=== PATIENT | female | born 2000 | race Two or more races ===

== ENCOUNTER 2019-08-29 17:07 | Emergency (ER) | payer SELFPAY ==
--- NOTE | 2019-08-29 18:00 | EDM.PDOC ---
ED HPI GENERAL MEDICAL PROBLEM - General Chief Complaint: Upper Extremity Injury/Pain Stated Complaint: LT ARM AND SHOULDER INJURY Time Seen by Provider: 08/29/19 17:18 Source of Information: Reports: Patient History Limitations: Reports: No Limitations - History of Present Illness INITIAL COMMENTS - FREE TEXT/NARRATIVE: The patient presents with left arm, shoulder and neck pain. She slipped and fell on some ice. She grabbed herself with that arm. She did not hit her head but she did hurt her neck. Her left shoulder, clavicle, elbow and wrist all hurt. She is right handed. She has no chest or abdominal pain. Onset: Sudden Duration: Day(s): (Yesterday) Location: Reports: Neck, Upper Extremity, Left (shoulder, elbow and wrist pain) Severity: Severe Improves with: Reports: Immobilization Worsens with: Reports: Movement Context: Reports: Trauma (fall) Associated Symptoms: Reports: No Other Symptoms Left Clavicle Pain Score (Numeric/FACES): 9 - Related Data Allergies Allergy/AdvReac Type Severity Reaction Status Date / Time amoxicillin Allergy Hives Verified 08/29/19 17:21 latex Allergy Hives Verified 08/29/19 17:21 Home Meds: Home Meds Hydrocodone/Acetaminophen [Hydrocodon-Acetaminophen 5-325] 1 - 2 each PO Q6HR PRN #15 tablet 08/29/19 [Rx] Past Medical History - Past Health History Medical/Surgical History: Denies Medical/Surgical History Social & Family History - Tobacco Use Smoking Status *Q: Current Every Day Smoker Years of Tobacco use: 3 Packs/Tins Daily: 0.5 - Caffeine Use Caffeine Use: Reports: Energy Drinks, Tea - Recreational Drug Use Recreational Drug Use: No Review of Systems - Review of Systems Review Of Systems: See Below Constitutional: Reports: No Symptoms Eyes: Reports: No Symptoms Ears: Reports: No Symptoms Nose: Reports: No Symptoms Mouth/Throat: Reports: No Symptoms Respiratory: Reports: No Symptoms Cardiovascular: Reports: No Symptoms GI/Abdominal: Reports: No Symptoms Genitourinary: Reports: No Symptoms Musculoskeletal: Reports: Neck Pain, Other (left shoulder, elbow and wrist pain) ED EXAM, GENERAL - Physical Exam Exam: See Below Exam Limited By: No Limitations General Appearance: Alert, No Apparent Distress Ears: Normal External Exam Nose: Normal Inspection Head: Atraumatic, Normocephalic Neck: Tender Lateral (left) Respiratory/Chest: No Respiratory Distress, Lungs Clear, Normal Breath Sounds Cardiovascular: Regular Rate, Rhythm, No Edema, No Murmur GI/Abdominal: Soft, Non-Tender, No Organomegaly, No Mass Back Exam: Normal Inspection Extremities: Other (Pain upon palpation to the left shoulder, left elbow and left wrist. Good sensation and pulses distally.) Course - Vital Signs Last Recorded V/S: Last Vital Signs Temp 98.5 F 08/29/19 17:25 Pulse 79 08/29/19 17:25 Resp 20 08/29/19 17:25 BP 113/78 08/29/19 17:25 Pulse Ox 95 08/29/19 17:25 - Orders/Labs/Meds Orders: Active Orders 24 hr Category Date Time Status Cervical Spine 2V or 3V [CR] Stat Exams 08/29/19 17:24 Taken Forearm 2V Lt [CR] Stat Exams 08/29/19 17:26 Taken Shoulder Comp Lt [CR] Stat Exams 08/29/19 17:24 Taken - Re-Assessments/Exams Free Text/Narrative Re-Assessment/Exam: 08/29/19 17:59 I ordered an x-ray of her shoulder, neck and forearm. 08/29/19 18:38 Her x-rays look good. Departure - Departure Time of Disposition: 18:40 Disposition: Home, Self-Care 01 Condition: Good Clinical Impression: Fall Qualifiers: Encounter type: initial encounter Qualified Code(s): W19.XXXA - Unspecified fall, initial encounter Cervical strain, acute Qualifiers: Encounter type: initial encounter Qualified Code(s): S16.1XXA - Strain of muscle, fascia and tendon at neck level, initial encounter Sprain of shoulder Qualifiers: Encounter type: initial encounter Shoulder sprain type: unspecified sprain Laterality: left Qualified Code(s): S43.402A - Unspecified sprain of left shoulder joint, initial encounter Sprain of elbow, left Qualifiers: Encounter type: initial encounter Qualified Code(s): S53.402A - Unspecified sprain of left elbow, initial encounter Sprain of wrist, left Qualifiers: Encounter type: initial encounter Qualified Code(s): S63.502A - Unspecified sprain of left wrist, initial encounter - Discharge Information *PRESCRIPTION DRUG MONITORING PROGRAM REVIEWED*: No *COPY OF PRESCRIPTION DRUG MONITORING REPORT IN PATIENT AARON: No Prescriptions: Hydrocodone/Acetaminophen [Hydrocodon-Acetaminophen 5-325] 1 - 2 each PO Q6HR PRN #15 tablet PRN Reason: Pain Referrals: PCP,None [Primary Care Provider] - Shirley Mei, IS CONSULTANT [Nurse Practitioner] - 1 Week Forms: ED Department Discharge Additional Instructions: Ice your arm and neck for 15 minutes 3 times per day for 2 days. Take tylenol or motrin for pain. If that does not work, try the hydrocodone. Please return if you are worse. Sepsis Event Note - Evaluation Sepsis Screening Result: No Definite Risk - Focused Exam Vital Signs: Vital Signs Temp Pulse Resp BP Pulse Ox 08/29/19 17:25 98.5 F 79 20 113/78 95 Date Exam was Performed: 08/29/19 Time Exam was Performed: 18:38 - My Orders Last 24 Hours: My Active Orders 08/29/19 17:24 Cervical Spine 2V or 3V [CR] Stat Shoulder Comp Lt [CR] Stat 08/29/19 17:26 Forearm 2V Lt [CR] Stat - Assessment/Plan Last 24 Hours: My Active Orders 08/29/19 17:24 Cervical Spine 2V or 3V [CR] Stat Shoulder Comp Lt [CR] Stat 08/29/19 17:26 Forearm 2V Lt [CR] Stat
--- NOTE | 2019-09-01 07:47 | CR ---
Left forearm: 2 views of the left forearm were obtained. Comparison: No prior left forearm study. No fracture or other bony abnormality is seen. Impression: 1. No abnormality is identified on 2 view left forearm study. Diagnostic code #1 This report was dictated in MDT
--- NOTE | 2019-09-01 07:47 | CR ---
Cervical spine: AP, lateral and odontoid views of the cervical spine were obtained. Comparison: No prior cervical spine imaging is available. Vertebral body heights and disc spaces are maintained. Prevertebral soft tissues are normal. Slight scoliosis is noted within the spine. No subluxation or fracture is appreciated. Impression: 1. Mild scoliosis. 2. Three-view cervical spine study is otherwise unremarkable. Diagnostic code #2 This report was dictated in MDT
--- NOTE | 2019-09-01 07:47 | CR ---
Left shoulder: 3 views of the left shoulder were obtained. Comparison: No prior left shoulder study. Glenohumeral joint and acromioclavicular joint appears unremarkable. Mild scoliosis is noted within the spine. No fracture, dislocation or other bony abnormality is identified. Impression: 1. Mild scoliosis. 2. Left shoulder study is otherwise unremarkable. Diagnostic code #2 This report was dictated in MDT
== END 2019-08-29 19:00 | disposition home or self-care (01) ==
LOC: JD.ED 17:07
DX: S16.1XXA Strain of muscle, fascia and tendon at neck level, initial encounter (principal); S53.402A Unspecified sprain of left elbow, initial encounter; S63.502A Unspecified sprain of left wrist, initial encounter; F17.210 Nicotine dependence, cigarettes, uncomplicated; Z88.1 Allergy status to other antibiotic agents; Z91.040 Latex allergy status; W19.XXXA Unspecified fall, initial encounter
CPT/HCPCS: 72040; 72040-26; 73030-26-LT; 73030-LT; 73090-26-LT; 73090-LT; 99283; 99283-25

== ENCOUNTER 2020-02-04 13:44 | Emergency (ER) | payer SELFPAY ==
--- NOTE | 2020-02-04 15:32 | US ---
Pelvic ultrasound: Multiple real-time images were obtained transvaginally. Comparison: No previous pelvic imaging is available. Findings: Small cystic structure is noted within the lower uterine segment. No other myometrial abnormality is seen. Uterus is anteverted. Endometrial thickness is 4 mm. Follicles are seen within both ovaries. No larger cyst or solid abnormality is seen within either ovary. Measurements: Uterus: Length 5.8 cm, AP height 2.3 cm, transverse width 4.0 cm Right ovary: 3.8 x 3.0 x 3.4 cm Left ovary: 4.1 x 1.5 x 4.6 cm Impression: 1. Small cyst within the lower uterine segment. This is believed to be incidental. 2. No additional abnormality is appreciated on pelvic ultrasound study. Diagnostic code #2 This report was dictated in MDT
--- NOTE | 2020-02-04 16:28 | EDM.PDOC ---
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 This has been going on for about 3 weeks. She says her cycle came early and she continues to bleed. She was soaking a pad every 1/2 hour. She has a history of polycystic ovarian syndrome. She has no fever, chills, cough, congestion, runny nose, chest pain or shortness of breath. Onset: Gradual Duration: Week(s): Location: Reports: Pelvis Quality: Reports: Sharp Severity: Moderate Improves with: Reports: None Worsens with: Reports: None Associated Symptoms: Reports: No Other Symptoms Lower Abdomen Pain Score (Numeric/FACES): 9 - Related Data Allergies Allergy/AdvReac Type Severity Reaction Status Date / Time amoxicillin Allergy Hives Verified 02/04/20 14:00 latex Allergy Hives Verified 02/04/20 14:00 Home Meds: Home Meds medroxyPROGESTERone [Provera] 10 mg PO DAILY #10 tab 02/04/20 [Rx] Past Medical History - Past Health History Medical/Surgical History: Denies Medical/Surgical History 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 Other JEWELLERY DESIGNER History: PCOS - Past Surgical History HEENT Surgical History: Reports: Oral Surgery Social & Family History - Tobacco Use Smoking Status *Q: Current Every Day Smoker Years of Tobacco use: 10 Packs/Tins Daily: 0.5 - Caffeine Use Caffeine Use: Reports: Energy Drinks - Recreational Drug Use Recreational Drug Use: No ED ROS GENERAL - Review of Systems Review Of Systems: See Below Constitutional: Reports: No Symptoms HEENT: Reports: No Symptoms Respiratory: Reports: No Symptoms Cardiovascular: Reports: No Symptoms Endocrine: Reports: No Symptoms GI/Abdominal: Reports: No Symptoms : Reports: Pain, Other (vaginal bleeding) ED EXAM, GI/ABD - Physical Exam Exam: See Below Exam Limited By: No Limitations General Appearance: Alert, No Apparent Distress Ears: Normal External Exam Nose: Normal Inspection Head: Atraumatic, Normocephalic Neck: Normal Inspection Respiratory/Chest: No Respiratory Distress, Lungs Clear, Normal Breath Sounds Cardiovascular: Regular Rate, Rhythm, No Edema, No Murmur GI/Abdominal Exam: Soft, No Organomegaly, No Mass, Tender (Mild tenderness to the left lower abdomen) Course - Vital Signs Last Recorded V/S: Last Vital Signs Temp 97.1 F 02/04/20 13:57 Pulse 78 02/04/20 13:57 Resp 18 02/04/20 13:57 BP 115/70 02/04/20 13:57 Pulse Ox 100 02/04/20 13:57 - Orders/Labs/Meds Orders: Active Orders 24 hr Category Date Time Status Pelvic Exam, Set Up [RC] ASDIRECTED Care 02/04/20 14:29 Active PATIENT RETYPE [BBK] Routine Lab 02/04/20 15:52 Ordered Labs: Laboratory Tests 02/04/20 02/04/20 02/04/20 Range/Units 15:13 15:13 15:13 WBC 8.97 (3.98-10.04) K/mm3 RBC 5.62 H (3.98-5.22) M/mm3 Hgb 14.9 (11.2-15.7) gm/dl Hct 44.1 (34.1-44.9) % MCV 78.5 L (79.4-94.8) fl MCH 26.5 (25.6-32.2) pg MCHC 33.8 (32.2-35.5) g/dl RDW Std Deviation 36.1 L (36.4-46.3) fL Plt Count 360 (182-369) K/mm3 MPV 9.3 L (9.4-12.3) fl Neut % (Auto) 64.3 (34.0-71.1) % Lymph % (Auto) 24.7 (19.3-51.7) % Fallon % (Auto) 7.6 (4.7-12.5) % Eos % (Auto) 3.1 (0.7-5.8) Baso % (Auto) 0.2 (0.1-1.2) % Neut # (Auto) 5.76 (1.56-6.13) K/mm3 Lymph # (Auto) 2.22 (1.18-3.74) K/mm3 Fallon # (Auto) 0.68 H (0.24-0.36) K/mm3 Eos # (Auto) 0.28 (0.04-0.36) K/mm3 Baso # (Auto) 0.02 (0.01-0.08) K/mm3 HCG, Qual Negative (NEGATIVE) Blood Type O POSITIVE - Re-Assessments/Exams Free Text/Narrative Re-Assessment/Exam: 02/04/20 16:26 I ordered labs and an US. Her CBC looks good. Her HCG is negative. Her blood type is O+. I will refer her to Dr Maxwell and get her provera. Departure - Departure Time of Disposition: 16:30 Disposition: Home, Self-Care 01 Condition: Good Clinical Impression: Vaginal bleeding - Discharge Information *PRESCRIPTION DRUG MONITORING PROGRAM REVIEWED*: Not Applicable *COPY OF PRESCRIPTION DRUG MONITORING REPORT IN PATIENT AARON: Not Applicable Prescriptions: medroxyPROGESTERone [Provera] 10 mg PO DAILY #10 tab Referrals: PCP,None [Primary Care Provider] - Jessica Maxwell MD [Physician] - 1 Week Forms: ED Department Discharge, ED Return to Work/School Form Additional Instructions: Take the provera daily for 10 days. Follow up with Dr Maxwell. Please return if you are worse. Sepsis Event Note (ED) - Evaluation Sepsis Screening Result: No Definite Risk - Focused Exam Vital Signs: Vital Signs Temp Pulse Resp BP Pulse Ox 02/04/20 13:57 97.1 F 78 18 115/70 100 - My Orders Last 24 Hours: My Active Orders 02/04/20 14:29 Pelvic Exam, Set Up [RC] ASDIRECTED 02/04/20 15:52 PATIENT RETYPE [BBK] Routine - Assessment/Plan Last 24 Hours: My Active Orders 02/04/20 14:29 Pelvic Exam, Set Up [RC] ASDIRECTED 02/04/20 15:52 PATIENT RETYPE [BBK] Routine
== END 2020-02-04 16:55 | disposition home or self-care (01) ==
LOC: JD.ED 13:44
DX: N93.9 Abnormal uterine and vaginal bleeding, unspecified (principal); F17.210 Nicotine dependence, cigarettes, uncomplicated; Z88.1 Allergy status to other antibiotic agents; Z91.040 Latex allergy status
CPT/HCPCS: 36415; 76830; 76830-26; 84703; 85025; 86900; 86901; 99284-25

== ENCOUNTER 2020-02-21 15:27 | Emergency (ER) | payer SELFPAY ==
[2020-02-21] MEDS ORDERED: Ketorolac 30 MG/ML SDV IVPUSH ONE (16:03)
[2020-02-21] MEDS ORDERED: diphenhydrAMINE 50 MG/ML SDV IVPUSH ONE (16:03)
[2020-02-21] MEDS ORDERED: Sodium Chloride 0.9% 10 ML Syringe FLUSH PRN (16:03)
[2020-02-21] MEDS ORDERED: Sodium Chloride 0.9% 1,000 ML IV ONE (16:03)
[2020-02-21] MEDS ORDERED: Metoclopramide 10 MG/2 ML SDV IVPUSH ONE (16:03)
--- NOTE | 2020-02-21 16:11 | EDM.PDOC ---
ED HPI GENERAL MEDICAL PROBLEM - General Chief Complaint: Headache Stated Complaint: HEADACHE/EAR PAIN Time Seen by Provider: 02/21/20 15:51 Source of Information: Reports: Patient, RN Notes Reviewed History Limitations: Reports: No Limitations - History of Present Illness INITIAL COMMENTS - FREE TEXT/NARRATIVE: Patient is a 19-year-old female who presents to the ED for evaluation of a headache and left-sided ear pain. She notes she has a history of migraines, and has been having a migraine for the past day or so, she notes this worsened yesterday. She is also complaining of some left ear pain, and itching inside the ear canal. She states that the fluorescent lights seem to bother her at work, and she feels like someone stabbing her in the left ear with ice pack. Sh [place] did use some Tylenol and ibuprofen yesterday, this helped the headache somewhat, but it is not taking it away entirely. She states when she goes home she sits in a very dark room to try to get relief. She did try some earache drops from [employer] yesterday, this helped only fleetingly. She is not had any fevers or chills, nausea vomiting or diarrhea, no cough or shortness of breath. She notes that she is sensitive to light and noise, this is common for her for her migraines. She does not have any medications or anything at home for migraine prophylaxis. 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 - Physical Exam Exam: See Below Exam Limited By: No Limitations General Appearance: Alert, WD/WN, No Apparent Distress Eye Exam: Bilateral Eye: EOMI, Normal Inspection, PERRL Ears: Normal External Exam (right EAC), Normal Canal (right EAC), Hearing Grossly Normal, Normal TMs (mild erythema on left TM over the bony structures.), Other (Left EAC appears to have some irritation and crusting appearance; she also has tragal tendneress on the left side.) Throat/Mouth: Normal Inspection Head Exam: Atraumatic, Normocephalic Neck: Normal Inspection, Supple, Non-Tender, Full Range of Motion Cardiovascular: Normal Peripheral Pulses, Regular Rate, Rhythm, No Murmur GI/Abdominal: Normal Bowel Sounds, Soft, Non-Tender, No Distention Neuro Exam (Abbreviated): Alert, Oriented, Normal Cognition, No Motor/Sensory Deficits Extremities: Normal Inspection, Normal Capillary Refill Psychiatric: Normal Affect, Normal Mood Skin Exam: Warm, Dry, Intact, Normal Color, No Rash Course - Vital Signs Last Recorded V/S: Last Vital Signs Temp 97.3 F 02/21/20 15:45 Pulse 82 02/21/20 15:45 Resp 16 02/21/20 15:45 BP 125/70 02/21/20 15:45 Pulse Ox 97 02/21/20 15:45 - Orders/Labs/Meds Orders: Active Orders 24 hr Category Date Time Status Peripheral IV Care [RC] . DIRECTED Care 02/21/20 16:03 Ordered Sodium Chloride 0.9% [Saline Flush] Med 02/21/20 16:03 Active 10 ml FLUSH ASDIRECTED PRN Peripheral IV Insertion Adult [OM.PC] Routine Oth 02/21/20 16:03 Ordered Medication Orders Sodium Chloride (Saline Flush) 10 ml FLUSH ASDIRECTED PRN PRN Reason: Keep Vein Open Last Admin: 02/21/20 16:47 Dose: 10 ml Documented by: TIFF Meds: Medications Generic Name Dose Route Start Last Admin Trade Name Freq PRN Reason Stop Dose Admin Sodium Chloride 10 ml 02/21/20 16:03 02/21/20 16:47 Saline Flush FLUSH 10 ml ASDIRECTED PRN Administration Keep Vein Open Discontinued Medications Generic Name Dose Route Start Last Admin Trade Name Freq PRN Reason Stop Dose Admin Diphenhydramine HCl 25 mg 02/21/20 16:03 02/21/20 16:45 Benadryl IVPUSH 02/21/20 16:04 25 mg ONETIME ONE Administration Sodium Chloride 1,000 mls @ 999 mls/hr 02/21/20 16:03 02/21/20 16:44 Normal Saline IV 02/21/20 17:03 999 mls/hr ASDIRECTED ONE Administration Ketorolac Tromethamine 30 mg 02/21/20 16:03 02/21/20 16:45 Toradol IVPUSH 02/21/20 16:04 30 mg ONETIME ONE Administration Metoclopramide HCl 10 mg 02/21/20 16:03 02/21/20 16:44 Reglan IVPUSH 02/21/20 16:04 10 mg ONETIME ONE Administration - Re-Assessments/Exams Free Text/Narrative Re-Assessment/Exam: 02/21/20 16:10 Patient presents to the ED for the evaluation of her headache and left ear pain. It does appear that she has otitis externa on the left side. 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 02/21/20 17:22 Patient states she is feeling much better, and is ready to go home at this time. Departure - Departure Time of Disposition: 17:22 Disposition: Home, Self-Care 01 Condition: Good Clinical Impression: Migraine Qualifiers: Migraine type: unspecified Status migrainosus presence: without status migrainosus Intractability: not intractable Qualified Code(s): G43.909 - Migraine, unspecified, not intractable, without status migrainosus Otitis externa Qualifiers: Otitis externa type: unspecified type Chronicity: acute Laterality: left Qualified Code(s): H60.502 - Unspecified acute noninfective otitis externa, left ear - Discharge Information *PRESCRIPTION DRUG MONITORING PROGRAM REVIEWED*: No *COPY OF PRESCRIPTION DRUG MONITORING REPORT IN PATIENT AARON: No Prescriptions: Ciprofloxacin/Dexamethasone [Ciprodex Otic Susp] 4 drop OT BID 7 Days #1 bottle Instructions: Otitis Externa, [id number], Ear Drops, Adult, [id number] Referrals: PCP,None [Primary Care Provider] - Forms: ED Department Discharge Additional Instructions: You were evaluated in the ER today for your headache and left ear pain. You have been diagnosed with a left sided otitis externa which is an infection of your left ear canal. You have been given a prescription for antibiotic ear drops. Please use 4 drops to the left ear BID x 7 days. Antibiotics can take up to 48 hours to start providing benefit. Please allow this timeframe before seeking care for reevaluation or a possible change in antibiotics. You may take 500 mg Tylenol or 600 mg ibuprofen every 6 hours as needed for further pain relief. Do not exceed 4000 mg Tylenol or 32 mg ibuprofen in a 24- hour time span. You were also given some IV fluids and medications for your headache, please try to go home and rest, this should hopefully make your headache feel better. Please return to the ER at any time if symptoms change or worsen. Sepsis Event Note (ED) - Evaluation Sepsis Screening Result: No Definite Risk - Focused Exam Vital Signs: Vital Signs Temp Pulse Resp BP Pulse Ox 02/21/20 15:45 97.3 F 82 16 125/70 97 - My Orders Last 24 Hours: My Active Orders 02/21/20 16:03 Peripheral IV Care [RC] . DIRECTED Sodium Chloride 0.9% [Saline Flush] 10 ml FLUSH ASDIRECTED PRN Peripheral IV Insertion Adult [OM.PC] Routine - Assessment/Plan Last 24 Hours: My Active Orders 02/21/20 16:03 Peripheral IV Care [RC] . DIRECTED Sodium Chloride 0.9% [Saline Flush] 10 ml FLUSH ASDIRECTED PRN Peripheral IV Insertion Adult [OM.PC] Routine
== END 2020-02-21 17:54 | disposition home or self-care (01) ==
LOC: JD.ED 15:27
DX: G43.909 Migraine, unspecified, not intractable, without status migrainosus (principal); H60.502 Unspecified acute noninfective otitis externa, left ear; F17.210 Nicotine dependence, cigarettes, uncomplicated; Z91.040 Latex allergy status; Z88.1 Allergy status to other antibiotic agents
CPT/HCPCS: 96361; 96374; 96375; 99283; J1200; J1885; J2765; J7030; 99284

== ENCOUNTER 2020-09-30 09:16 | Emergency (ER) | payer MEDICAID ==
--- NOTE | 2020-09-30 09:28 | EDM.PDOC ---
ED HPI GENERAL MEDICAL PROBLEM - General Chief Complaint: ENT Problem Stated Complaint: CONGESTION/SOB/HEAD ACHE Time Seen by Provider: 09/30/20 09:27 Source of Information: Reports: Patient History Limitations: Reports: No Limitations - History of Present Illness INITIAL COMMENTS - FREE TEXT/NARRATIVE: 20-year-old female presents to the ED complaining of diffuse sinus pressure discomfort particular in the right side of her face. She feels pressure above her right eye and inferior to her right eye for the last several days--about 1 week. She states she is prone to sinus infection. If she feels her ears are plugged. She has no diffuse ear pain. She is blowing her nose a good deal. Clinically she is aware of postnasal drip. She is a smoker and does have a paroxysmal intermittent productive cough without hemoptysis. She clinically does have a low-grade fever on examination. No chills. Denies any possibility of with menstrual period starting within the last 2 days. Onset: Gradual Onset Date: 09/27/20 Duration: Day(s):, Getting Worse Location: Reports: Face (Complains of facial pressure discomfort inferior to her right eye and also pain above her right eye.), Chest (Accessible cough but she is a cigarette smoker and does not think she is that much worse than normal. She is aware of postnasal drip.). Denies: Neck Quality: Reports: Ache, Throbbing, Other (Sure in the face in the distribution of the maxillary sinus on the right side and frontal sinus. She cannot equilibrate ear pressures.) Severity: Moderate Improves with: Reports: None Worsens with: Reports: Other Context: Reports: Other. Denies: Activity, Exercise (Renata no seems to create some degree of ear pain.), Lifting, Sick Contact, Trauma Associated Symptoms: Reports: Cough, cough w sputum (Paroxysmal intermittent cough. She is a smoker.), Fever/Chills ( Occasional sputum production which she is not appreciating any color to.), Loss of Appetite, Malaise. 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 - Related Data Allergies Allergy/AdvReac Type Severity Reaction Status Date / Time amoxicillin Allergy Hives Verified 09/30/20 09:25 latex Allergy Hives Verified 09/30/20 09:25 Sulfa (Sulfonamide Allergy Nausea and Verified 09/30/20 09:26 Antibiotics) Vomiting Home Meds: Home Meds Doxycycline [Vibra-Tabs] 100 mg PO Q12HR #24 tab 09/30/20 [Rx] Loratadine/Pseudoephedrine [Claritin-D 12 Hour] 1 tab PO Q12HR #14 tab.er 09/30/20 [Rx] Past Medical History - Past Health History Medical/Surgical History: Denies Medical/Surgical History BOX FINISHER History: Reports: Polycystic Ovaries Other BOX FINISHER History: PCOS Neurological History: Reports: Migraines - Past Surgical History HEENT Surgical History: Reports: Oral Surgery Social & Family History - Caffeine Use Caffeine Use: Reports: None - Living Situation & Occupation Living situation: Reports: Single Occupation: Unemployed ED ROS ENT - Review of Systems Review Of Systems: See Below Constitutional: Reports: Malaise, Weakness, Fatigue, Decreased Appetite. Denies: Fever, Chills HEENT: Reports: Ear Pain, Rhinitis, Sinus Problem, Throat Pain. Denies: Vertigo Respiratory: Reports: Cough, Sputum. Denies: Shortness of Breath, Wheezing, Pleuritic Chest Pain, Hemoptysis Cardiovascular: Denies: Chest Pain, Blood Pressure Problem, Claudication, Dyspnea on Exertion, Edema, Lightheadedness, Orthopnea, Palpitations Endocrine: Reports: No Symptoms GI/Abdominal: Reports: Decreased Appetite : Reports: No Symptoms, Other (Menses started 2 days ago) Musculoskeletal: Reports: No Symptoms Skin: Reports: No Symptoms Neurological: Reports: No Symptoms. Denies: Dizziness, Headache Psychiatric: Reports: No Symptoms Hematologic/Lymphatic: Reports: No Symptoms ED EXAM, ENT - Physical Exam Exam: See Below Exam Limited By: No Limitations General Appearance: Alert, WD/WN, No Apparent Distress, Other (Patient does feel very mildly warm to palpation. Temperature is recorded 36.9 degrees. Heart rate 94 and sinus with respiratory of 12 and O2 sats 100% room air. BP is 130/87.) Eye Exam: Bilateral Eye: Normal Inspection, PERRL (No scleral icterus or blepharal pallor.) Ears: Normal TMs Nose: Nasal Swelling (Sling of the nasal turbinates bilaterally.) Mouth/Throat: Normal Inspection, Normal Gums, Normal Lips, Normal Oropharynx, Normal Teeth, Other (Chills are mildly hypertrophic without any exudate.) Head: Atraumatic, Normocephalic Neck: Normal Inspection, Supple, Non-Tender, Full Range of Motion. No: Lymphadenopathy (L), Lymphadenopathy (R) Respiratory/Chest: No Respiratory Distress, Lungs Clear, Normal Breath Sounds, No Accessory Muscle Use Cardiovascular: Normal Peripheral Pulses, Regular Rate, Rhythm, No Edema, No Gallop, No Murmur, No Rub GI/Abdominal: Normal Bowel Sounds, Soft, Non-Tender, No Organomegaly, No Distention Back: Normal Inspection, Full Range of Motion. No: CVA Tenderness (L), CVA Tenderness (R) Extremities: Normal Inspection, Normal Range of Motion, Non-Tender, No Pedal Edema Neurological: Alert, Oriented, CN II-XII Intact, Normal Cognition Psychiatric: Normal Affect, Normal Mood Skin: Warm, Dry, Intact, Normal Color, No Rash Course - Vital Signs Last Recorded V/S: Last Vital Signs Temp 36.9 C 09/30/20 09:19 Pulse 94 09/30/20 09:19 Resp 12 09/30/20 09:19 BP 130/87 09/30/20 09:19 Pulse Ox 100 09/30/20 09:19 - Radiology Interpretation Free Text/Narrative:: 20-year-old female presents to the ED complaining of diffuse right hemifacial pain pressure discomfort. She has had upper respiratory tract infection mostly involving her sinuses for the last week. Feels pain primarily right hemiface be above and below her right eye in the distribution of the right frontal and right inferior maxillary sinus. Nasally congested. Some discomfort in her ears and recognize she is unable to equilibrate pressures in the middle ear cavity due to eustachian tube dysfunction. Associated mild paroxysmal intermittent cough. She is aware of postnasal drip. She is a smoker. On exam she is mildly warm to palpation. Both eardrums appear to be within normal limits. Very nasally congested. No obvious postnasal drip although the posterior pharynx is slightly erythematous likely from cigarette smoking. Tonsils are hypertrophic. No cervical adenopathy identified. Paroxysmal intermittent productive sounding cough appreciated but lungs were clear on examination. Plan placed on Claritin-D 12-hour release 1 tablet twice daily for the next 7 days. Antibiotic will be doxycycline 100 mg twice daily for the next 14 days. Departure - Departure Time of Disposition: 09:41 Disposition: Home, Self-Care 01 Condition: Fair Clinical Impression: Sinusitis chronic, frontal - Discharge Information *PRESCRIPTION DRUG MONITORING PROGRAM REVIEWED*: Not Applicable *COPY OF PRESCRIPTION DRUG MONITORING REPORT IN PATIENT AARON: Not Applicable Prescriptions: Loratadine/Pseudoephedrine [Claritin-D 12 Hour] 1 tab PO Q12HR #14 tab.er Doxycycline [Vibra-Tabs] 100 mg PO Q12HR #24 tab Instructions: Sinusitis, Adult, [id number] Referrals: PCP,None [Primary Care Provider] - Forms: ED Department Discharge Additional Instructions: Evaluation in the emergency room today in regards to acute sinusitis particular involving the right maxillary and right frontal sinus clinically. Pressure behind the eye. No signs of fluid behind the middle ear cavities. By history have eustachian tube dysfunction with inability to open up your ear cavities. Suggest continue treatment with Motrin 600 mg every 6 hours to reduce pain and inflammation. Hot foods such as soup, coffee, tea also help decongest sinuses. Suggest decongestant Claritin-D 12-hour release tablets 1 in the morning and 1 after supper in the evening to help open up the eustachian tubes and the sinuses. Antibiotics to be doxycycline 100 mg twice daily for the next 14 days. Suggest taking 2 tablets with the first dose with some food in your stomach. Antibiotics take 2 to 3 days to start to work. Follow-up with personal care physician if any further problems occur. Sepsis Event Note (ED) - Evaluation Sepsis Screening Result: No Definite Risk - Focused Exam Vital Signs: Vital Signs Temp Pulse Resp BP Pulse Ox 09/30/20 09:19 36.9 C 94 12 130/87 100
== END 2020-09-30 10:00 | disposition home or self-care (01) ==
LOC: JD.ED 09:16
DX: J32.1 Chronic frontal sinusitis (principal); Z88.0 Allergy status to penicillin; Z88.2 Allergy status to sulfonamides; Z91.040 Latex allergy status
CPT/HCPCS: 99283

== ENCOUNTER 2021-06-07 13:15 | Emergency (ER) | payer SELFPAY ==
[2021-06-07] MEDS ORDERED: Sodium Chloride 0.9% 10 ML Syringe FLUSH PRN (14:52)
[2021-06-07] MEDS ORDERED: Sodium Chloride 0.9% 1,000 ML IV ONE (14:52)
[2021-06-07] MEDS ORDERED: Ketorolac 30 MG/ML SDV IVPUSH ONE (14:52)
[2021-06-07] MEDS ORDERED: Albuterol/Ipratropium 3.0-0.5 MG/3 ML Neb Soln NEB ONE (14:52)
[2021-06-07] MEDS ORDERED: predniSONE 20 MG Tab PO ONE (14:54)
[2021-06-07] MEDS ORDERED: Azithromycin 250 MG Tab PO ONE (14:55)
--- NOTE | 2021-06-07 15:26 | CR ---
Chest: Frontal view of the chest was obtained. Comparison: No prior chest imaging is available. Heart size and mediastinum are normal. Lungs are clear with no acute parenchymal change. Bony structures appear within normal limits for the patient's age. Impression: 1. Nothing acute is seen on frontal chest x-ray. Diagnostic code #1
[2021-06-07 15:32] LABS: CORONAVIRUS COVID-19 NAA NEGATIVE (NEGATIVE)
--- NOTE | 2021-06-07 17:23 | EDM.PDOC ---
ED HPI GENERAL MEDICAL PROBLEM - General Chief Complaint: General Stated Complaint: COUGH HEAD CHEST AND BACK PAIN Time Seen by Provider: 06/07/21 14:37 Source of Information: Reports: Patient History Limitations: Reports: No Limitations - History of Present Illness INITIAL COMMENTS - FREE TEXT/NARRATIVE: Patient states she has a cough that is occasionally productive that is been going on for several weeks. Has been having some fever and chills over the last several days. She denies any vomiting or diarrhea but at times feels nauseous. Patient is complaining of having some muscle aches. She has a moderate headache. Patient is a cigarette smoker and has not been vaccinated against Covid. She denies any chest pain or pressure. Duration: Week(s): (two) Location: Reports: Generalized Quality: Reports: Ache Severity: Moderate Improves with: Reports: None Worsens with: Reports: Breathing, Other (Smoking.) Associated Symptoms: Reports: Cough, Loss of Appetite, Malaise. Denies: Nausea/Vomiting, Shortness of Breath Generalized Pain Score (Numeric/FACES): 8 - Related Data Allergies Allergy/AdvReac Type Severity Reaction Status Date / Time amoxicillin Allergy Hives Verified 06/07/21 14:34 latex Allergy Hives Verified 06/07/21 14:34 Sulfa (Sulfonamide Allergy Nausea and Verified 06/07/21 14:34 Antibiotics) Vomiting Home Meds: Home Meds Albuterol [Ventolin HFA] 2 puff INH Q6H PRN #1 puff 06/07/21 [Rx] Azithromycin 250 mg PO DAILY 5 Days #5 tablet 06/07/21 [Rx] Cyclobenzaprine [Flexeril] 10 mg PO ASDIRECTED PRN 06/07/21 [History] Past Medical History - Past Health History Medical/Surgical History: Denies Medical/Surgical History HEENT History: Reports: Sinusitis, Other (See Below) Other HEENT History: otitis externa 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: Reports: Polycystic Ovaries Other 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: PCOS Other Musculoskeletal History: sprain to left shoulder, left elbow, left wrist; cervical strain Neurological History: Reports: Migraines Psychiatric History: Reports: Addiction Other Psychiatric History: 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; 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 Constitutional: Reports: Malaise, Fatigue Respiratory: Reports: Cough. Denies: Shortness of Breath GI/Abdominal: Reports: No Symptoms : Reports: No Symptoms Musculoskeletal: Reports: No Symptoms Skin: Reports: No Symptoms Neurological: Reports: No Symptoms Psychiatric: Reports: No Symptoms ED EXAM, GENERAL - Physical Exam Exam: See Below Exam Limited By: No Limitations General Appearance: Alert, No Apparent Distress Neck: Normal Inspection, Supple Respiratory/Chest: No Respiratory Distress, Rhonchi Cardiovascular: Regular Rate, Rhythm, No Edema GI/Abdominal: Normal Bowel Sounds, Soft, Non-Tender Back Exam: Normal Inspection. No: CVA Tenderness (L), CVA Tenderness (R) Extremities: Normal Inspection Neurological: Alert, Oriented Psychiatric: Normal Affect Skin Exam: Warm, Dry Course - Vital Signs Text/Narrative:: Patient's lab work shows she has influenza A but not Covid. Chest x-ray shows no acute disease. Other labs are unremarkable. Patient is feeling better after albuterol treatment. I am keeping her on Zithromax and will give her albuterol inhaler which she is familiar with using. She will return to ER if having fever or shaking chills vomiting or feeling worse. Last Recorded V/S: Last Vital Signs Temp 98.2 F 06/07/21 14:32 Pulse 95 06/07/21 14:32 Resp 20 06/07/21 14:32 BP 133/91 H 06/07/21 14:32 Pulse Ox 96 06/07/21 14:53 - Orders/Labs/Meds Orders: Active Orders 24 hr Category Date Time Status Peripheral IV Care [RC] . DIRECTED Care 06/07/21 14:53 Active RT Aerosol Therapy [RC] ASDIRECTED Care 06/07/21 14:53 Active Sodium Chloride 0.9% [Saline Flush] Med 06/07/21 14:52 Active 10 ml FLUSH ASDIRECTED PRN Peripheral IV Insertion Adult [OM.PC] Routine Oth 06/07/21 14:52 Ordered Medication Orders Sodium Chloride (Sodium Chloride 0.9% 10 Ml Syringe) 10 ml FLUSH ASDIRECTED PRN PRN Reason: Keep Vein Open Labs: Laboratory Tests 06/07/21 Range/Units 14:28 Influenza Type A RNA Positive H (NEGATIVE) Influenza Type B RNA Negative (NEGATIVE) SARS-CoV-2 RNA (KIRSTIE) Negative (NEGATIVE) Meds: Medications Generic Name Dose Route Start Last Admin Trade Name Freq PRN Reason Stop Dose Admin Sodium Chloride 10 ml 06/07/21 14:52 Sodium Chloride 0.9% 10 Ml Syringe FLUSH ASDIRECTED PRN Keep Vein Open Discontinued Medications Generic Name Dose Route Start Last Admin Trade Name Freq PRN Reason Stop Dose Admin Albuterol/Ipratropium 3 ml 06/07/21 14:52 06/07/21 15:21 Albuterol/Ipratropium 3.0-0.5 Mg/3 Ml Neb Soln NEB 06/07/21 14:53 3 ml ONETIME ONE Administration Azithromycin 500 mg 06/07/21 14:55 06/07/21 15:11 Azithromycin 250 Mg Tab PO 06/07/21 14:56 500 mg ONETIME ONE Administration Sodium Chloride 1,000 mls @ 1,000 mls/hr 06/07/21 14:52 06/07/21 15:11 Normal Saline IV 06/07/21 15:51 1,000 mls/hr ONETIME ONE Administration Ketorolac Tromethamine 30 mg 06/07/21 14:52 06/07/21 15:10 Ketorolac 30 Mg/Ml Sdv IVPUSH 06/07/21 14:53 30 mg ONETIME ONE Administration Prednisone 60 mg 06/07/21 14:54 06/07/21 15:10 Prednisone 20 Mg Tab PO 06/07/21 14:55 60 mg ONETIME ONE Administration Departure - Departure Time of Disposition: 17:23 Disposition: Home, Self-Care 01 Condition: Good Clinical Impression: Acute bronchitis, Influenza A - Discharge Information Instructions: Influenza, Adult, [id number], Acute Bronchitis, Adult, Eas y-to-Read Referrals: PCP,None [Primary Care Provider] - Additional Instructions: Continue with Zithromax. Albuterol as needed. Return to ER symptoms are worse. Quit smoking cigarettes. Increase fluids with Tylenol and ibuprofen for your flulike symptoms. Sepsis Event Note (ED) - Focused Exam Vital Signs: Vital Signs Temp Pulse Resp BP Pulse Ox Pulse Ox 06/07/21 14:53 96 06/07/21 14:32 98.2 F 95 20 133/91 H 99 - My Orders Last 24 Hours: My Active Orders 06/07/21 14:52 Sodium Chloride 0.9% [Saline Flush] 10 ml FLUSH ASDIRECTED PRN Peripheral IV Insertion Adult [OM.PC] Routine 06/07/21 14:53 Peripheral IV Care [RC] . DIRECTED RT Aerosol Therapy [RC] ASDIRECTED - Assessment/Plan Last 24 Hours: My Active Orders 06/07/21 14:52 Sodium Chloride 0.9% [Saline Flush] 10 ml FLUSH ASDIRECTED PRN Peripheral IV Insertion Adult [OM.PC] Routine 06/07/21 14:53 Peripheral IV Care [RC] . DIRECTED RT Aerosol Therapy [RC] ASDIRECTED
== END 2021-06-07 17:51 | disposition home or self-care (01) ==
LOC: JD.ED 13:15
DX: J10.1 Influenza due to other identified influenza virus with other respiratory manifestations (principal); F17.210 Nicotine dependence, cigarettes, uncomplicated; Z20.822 Contact with and (suspected) exposure to COVID-19; Z88.0 Allergy status to penicillin; Z88.2 Allergy status to sulfonamides; Z91.040 Latex allergy status
CPT/HCPCS: 0240U; 71045; 94640; 96374; 99284; A9270; J1885; J7030; J7512; J7620-GY

== ENCOUNTER 2022-11-03 10:26 | Emergency (ER) | payer MEDICAID ==
[2022-11-03 11:29] LABS: CORONAVIRUS COVID-19 NAA NEGATIVE (NEGATIVE); INFLUENZA A NAA NEGATIVE (NEGATIVE); RESPIRATORY SYNCYTIAL VIR NAA NEGATIVE (NEGATIVE)
== END 2022-11-03 13:24 | disposition home or self-care (01) ==
LOC: JD.ED 10:26
DX: B34.9 Viral infection, unspecified (principal); J45.909 Unspecified asthma, uncomplicated; F17.210 Nicotine dependence, cigarettes, uncomplicated; Z86.16 Personal history of COVID-19; Z88.0 Allergy status to penicillin; Z91.040 Latex allergy status; Z88.2 Allergy status to sulfonamides; Z79.899 Other long term (current) drug therapy; Z20.822 Contact with and (suspected) exposure to COVID-19
CPT/HCPCS: 0241U; 71046; 87651; 99284

== ENCOUNTER 2023-01-30 08:50 | Emergency (ER) | payer MEDICAID | END 2023-01-30 10:45 | disposition home or self-care (01) | LOC: JD.ED 08:50 | DX: J06.9 Acute upper respiratory infection, unspecified (principal); B97.89 Other viral agents as the cause of diseases classified elsewhere; Z88.0 Allergy status to penicillin; Z91.048 Other nonmedicinal substance allergy status; Z88.2 Allergy status to sulfonamides; Z72.0 Tobacco use; Z86.16 Personal history of COVID-19; Z20.822 Contact with and (suspected) exposure to COVID-19 | CPT/HCPCS: 71045; 71045-26; 87804; 99282; 99283; U0002 ==

== ENCOUNTER 2025-02-07 14:05 | Emergency (ER) | payer MEDICAID ==
[2025-02-07] MEDS: Ondansetron 4 MG/2 ML SDV IVPUSH ONE (14:36)
[2025-02-07] MEDS: Propofol 200 MG/20 ML SDV IVPUSH ONE (14:44)
[2025-02-07] MEDS ORDERED: Naloxone 0.4 MG/ML SDV IVPUSH PRN (15:12)
[2025-02-07] MEDS: fentaNYL 100 MCG/2 ML SDV IVPUSH ONE (15:18)
[2025-02-07] MEDS: Acetaminophen/oxyCODONE 325-5 MG Tab PO ONE (15:19)
== END 2025-02-07 15:45 | disposition home or self-care (01) ==
LOC: JD.ED 14:05
DX: M24.411 Recurrent dislocation, right shoulder (principal); J45.909 Unspecified asthma, uncomplicated; Z86.16 Personal history of COVID-19; Z88.0 Allergy status to penicillin; Z88.2 Allergy status to sulfonamides; Z91.040 Latex allergy status; Z79.899 Other long term (current) drug therapy
CPT/HCPCS: 23650; 73020; 73030; 96374; 96375; 99152; 99283; A9270; J2405; J2704; J3010; J7030; 99151; 99284